=== PATIENT | female | born 1950 | race Two or more races ===

== ENCOUNTER → 2017-02-02 | Outpatient (CLI) | payer SELFPAY ==
[~2017-02-02] MED LIST: ADRENOID CAPSU1 EACH PO; ALLER-TEC10 M1 PO; AMBIEN10 MG PO; CALCIUM + D 6001 TA1 PO; DICYCLOMINE HCL10 MG PO; GAS X PO; OMEPRAZOLE40 M1 PO; PANTOPRAZOLE SO40 MG PO; PROBIOTIC1 EAC1 PO; PROBIOTIC1 EAC2 PO; REFRESH5 ML OU; TRAMADOL HCL50 M2 PO; VITAMIN D 22000 UNIT PO
== END | disposition home or self-care (01) ==
LOC: CECH 12:41
DX: R06.02 Shortness of breath (principal); R60.0 Localized edema
CPT/HCPCS: 93306

== ENCOUNTER → 2017-02-08 | Day surgery (SDC) | payer SELFPAY ==
--- NOTE | ~2017-02-08 | OR ---
Unit #: [id number] #: [id number] Patient: ZO MATT [id number] [address] [address] [id number] MR#: [id number] NAME: ZO MATT ROOM: Date of Procedure: 02/08/2017 Admission Date: 02/08/2017 Surgeon: Corby Rod M.D. : 1950 Attending Physician: Corby Rod M.D. [facility] OPERATIVE NOTE PROCEDURE PERFORMED Lumbar epidural steroid injection under x-ray guided needle placement with provider administered conscious sedation. PREOPERATIVE DIAGNOSES 1. Acute lumbar radiculitis. 2. Spinal stenosis, lumbosacral spine. 3. Herniated disk, L5-S1. 4. Degenerative joint disease, lumbosacral spine. 5. Degenerative disk disease, lumbosacral spine. INDICATIONS FOR PROCEDURE The patient presents today with a longstanding history of chronic lumbar radicular pain. She has been unsuccessfully treated with conservative measures and has responded somewhat to epidural steroid injections. She got approximately 100% relief for 2 to 4 weeks, which then over the course of the next 8 weeks, advanced in a crescendo pattern to the point that over the course last 2 to 4 weeks she has developed interference with her activities of daily living. After discussing risks and benefits of proceeding today with an L5-S1 epidural steroid injection as well as referral to Dr. Bhaskar King for surgical evaluation and referral to [facility] for potential facet joint injections at the L5-S1 level. The patient agreed this would be the appropriate course of action. DESCRIPTION OF PROCEDURE She was then taken to the operating room, where she was prepped and draped in a sterile manner. Standard monitors were applied. She was sedated with 2 mg of IV Versed and lumbar epidural space accessed at the L5-S1 level using loss of resistance technique and x-ray guidance. Needle placement was confirmed with the injection of 2 mL of Omnipaque. There was good superior and inferior flow at this L5 injected level. Following successful needle placement confirmation, the patient received an injectate containing 4 mL of normal saline and 80 mg of methylprednisolone. She tolerated this procedure well. She was discharged home with followup instructions, which included a return to this clinic on 05/17/2017 as well as the above-mentioned referrals. Dictated by... Corby Rod M.D. JRG/daynal Unit #: [id number] #: [id number] Patient: ZO MATT TD: 02/09/2017 04:08 JOB #: [id number] CC: Judson Albert M.D. [facility] OPERATIVE NOTE Page 1 of 1 X Javier Rod MD X PROCEDURE OPERATIVE NOTE
== END | disposition home or self-care (01) ==
LOC: CCSC 09:46
DX: M51.17 Intervertebral disc disorders with radiculopathy, lumbosacral region (principal); M48.07 Spinal stenosis, lumbosacral region; M47.27 Other spondylosis with radiculopathy, lumbosacral region; G89.29 Other chronic pain
CPT/HCPCS: J1040; J2250